=== PATIENT | female | born 1995 | race Caucasian/White ===

== ENCOUNTER 2018-12-17 12:50 | Observation (INO) | payer OTHER ==
[~2018-12-17] VITALS: Ht 158 cm; Wt 79.8 kg
== END 2018-12-17 14:40 | disposition home or self-care (01) ==
LOC: 4S 12:50
PROVIDERS: ADMIT Obstetrics & Gynecology; ATTEND Obstetrics & Gynecology
DX: O36.8330 Maternal care for abnormalities of the fetal heart rate or rhythm, third trimester, not applicable or unspecified (principal); Z3A.38 38 weeks gestation of pregnancy

== ENCOUNTER 2018-12-22 10:05 | Inpatient (IN) | payer OTHER ==
[~2018-12-22] VITALS: Ht 157.5 cm; Wt 78.9 kg
[2018-12-22] MEDS ORDERED: CARBOPROST TROMETHAMINE 250 MCG/ML AMP IM PRN (10:30)
[2018-12-22] MEDS ORDERED: RINGERS SOLUTION,LACTATED 1,000 ML IV PRN (10:30)
[2018-12-22] MEDS ORDERED: METHYLERGONOVINE MALEATE 0.2 MG/ML VIAL IM PRN (10:30)
[2018-12-22] MEDS ORDERED: CITRIC ACID/SODIUM CITRATE 30 ML SOLUTION UDCUP PO PRN (10:30)
[2018-12-22] MEDS ORDERED: METOCLOPRAMIDE HCL 5 MG/ML 2 ML VIAL IVP PRN (10:30)
[2018-12-22] MEDS ORDERED: LIDOCAINE/PF 1% 30 ML VIAL INJ PRN (10:30)
[2018-12-22] MEDS ORDERED: OXYTOCIN 30 UNITS/LACT RINGERS 500 ML IV ONE (10:30)
[2018-12-22] MEDS: RINGERS SOLUTION,LACTATED 1,000 ML IV SCH ×2 (11:37→22:20)
[2018-12-22 11:59] LABS: BASOPHILS % (AUTO) 0.3 % (0.0-2.0); EOSINOPHILS % (AUTO) 0.5 % (1.0-6.0); HEMATOCRIT 32.5 % (36-46); LYMPHOCYTES # (AUTO) 1.4 K/uL (1.0-4.8); LYMPHOCYTES % (AUTO) 11.6 % (22.0-44.0); MEAN CORPUSCULAR HEMOGLOBIN 28.6 pg (26.0-34.0); MEAN CORPUSCULAR HGB CONC 33.7 G/dL (31.0-37.0); MEAN CORPUSCULAR VOLUME 85 fL (80-100); MONOCYTES # (AUTO) 0.7 K/uL (0.1-1.0); MONOCYTES % (AUTO) 5.8 % (2.0-9.0); NEUTROPHILS # (AUTO) 10.2 K/uL (1.8-7.7); NEUTROPHILS % (AUTO) 81.8 % (40.0-70.0); PLATELET COUNT (AUTO) 256 K/uL (150-450); RED BLOOD CELL COUNT(AUTO) 3.83 MIL/uL (4.00-5.20); RED CELL DISTRIBUTION WIDTH 13.6 % (11.5-14.5)
[2018-12-22] MEDS ORDERED: PREN-217 PO (12:49)
[2018-12-22] MEDS ORDERED: INFLUENZA VIRUS VACCINE QVS 2019-20 (3YR+)/PF 60 MCG/0.5 ML SYRINGE IM ONE (13:00)
[2018-12-22] MEDS: MISOPROSTOL 25 MCG TABLET VG SCH ×3 (13:41→22:27)
[2018-12-22 14:30] VITALS: BP 124/82
[2018-12-22] MEDS ORDERED: OXYGEN THERAPY IH SCH (20:00)
[2018-12-23] MEDS ORDERED: AMPICILLIN SODIUM 2 GM/NS 100 ML IV ONE
[2018-12-23] MEDS: MISOPROSTOL 25 MCG TABLET VG SCH ×3 (02:39→10:38)
[2018-12-23] MEDS: AMPICILLIN SODIUM 1 GM/NS 50 ML IV SCH ×5 (03:50→19:58)
[2018-12-23] MEDS: RINGERS SOLUTION,LACTATED 1,000 ML IV SCH ×3 (07:57→22:44)
[2018-12-23] MEDS ORDERED: DINOPROSTONE 10 MG VAGINAL SUPPOSITORY VG ONE (15:30)
[2018-12-23] MEDS ORDERED: INFLUENZA VIRUS VACCINE QVS 2019-20 (3YR+)/PF 60 MCG/0.5 ML SYRINGE IM ONE (20:30)
[2018-12-23] MEDS ORDERED: OXYTOCIN 30 UNITS/LACT RINGERS 500 ML IV PRN (21:09)
[2018-12-23] MEDS ORDERED: MISOPROSTOL 25 MCG TABLET VG ONE (21:15)
[2018-12-24] MEDS: AMPICILLIN SODIUM 1 GM/NS 50 ML IV SCH ×3 (00:08→19:47)
[2018-12-24] MEDS ORDERED: -PHARMACY NOTE- MISC ONE (03:30)
[2018-12-24] MEDS ORDERED: MISOPROSTOL 25 MCG TABLET VG ONE (08:15)
[2018-12-24] MEDS: RINGERS SOLUTION,LACTATED 1,000 ML IV SCH ×2 (08:20→16:36)
[2018-12-24] MEDS ORDERED: OXYTOCIN 30 UNITS/LACT RINGERS 500 ML IV PRN (19:15)
[2018-12-24] MEDS ORDERED: MISOPROSTOL 50 MCG TABLET PO ONE (19:15)
[2018-12-25] MEDS: AMPICILLIN SODIUM 1 GM/NS 50 ML IV SCH ×4 (00:16→12:35)
[2018-12-25] MEDS ORDERED: MISOPROSTOL 50 MCG TABLET PO SCH (00:45)
[2018-12-25] MEDS: RINGERS SOLUTION,LACTATED 1,000 ML IV SCH ×3 (01:43→15:06)
[2018-12-25] MEDS ORDERED: OXYTOCIN 30 UNITS/LACT RINGERS 500 ML IV PRN (03:00)
[2018-12-25] MEDS ORDERED: BUPIVACAINE HCL/PF 0.25% 10 ML VIAL ONE (06:59)
[2018-12-25] MEDS ORDERED: ROPIVACAINE HCL/PF 0.2% 100 ML ED ONE ×2 (06:59→13:01)
[2018-12-25] MEDS ORDERED: ONDANSETRON HCL 4 MG/2 ML VIAL IVP PRN (13:15)
[2018-12-25] MEDS ORDERED: ROPIVACAINE HCL/PF 0.2% 100 ML ED PRN (13:15)
[2018-12-25] MEDS ORDERED: DiphenhydrAMINE HCL 50 MG/ML VIAL IVP PRN (13:15)
[2018-12-25] MEDS ORDERED: ACETAMINOPHEN 325 MG TABLET PO ONE (14:45)
[2018-12-25] MEDS ORDERED: WATER IV SCH (15:00)
[2018-12-25] MEDS ORDERED: GENTAMICIN SULFATE IV SCH (15:00)
[2018-12-25] MEDS ORDERED: DEXTROSE 5% IV SCH (15:00)
[2018-12-25] MEDS ORDERED: MINERAL OIL 30 ML UDCUP ONE (15:10)
[2018-12-25] MEDS ORDERED: MINERAL OIL 30 ML UDCUP VG ONE (15:30)
[2018-12-25] MEDS ORDERED: AMPICILLIN SODIUM 2 GM/NS 100 ML IV SCH (16:00)
[2018-12-25] MEDS ORDERED: OXYTOCIN 30 UNITS/LACT RINGERS 500 ML IV ONE (16:11)
[2018-12-25] MEDS ORDERED: BENZOCAINE 20%/MENTHOL 56 GM SPRAY CANISTER TP PRN (16:15)
[2018-12-25] MEDS ORDERED: LANOLIN 7 GM OINTMENT TP PRN (16:15)
[2018-12-25] MEDS ORDERED: LIDOCAINE/PF 1% 30 ML VIAL INJ PRN (16:15)
[2018-12-25] MEDS ORDERED: GLYCERIN/WITCH HAZEL LEAF 40 PADS JAR TP PRN (16:15)
[2018-12-25] MEDS ORDERED: IBUPROFEN 800 MG TABLET PO PRN (16:15)
[2018-12-25] MEDS ORDERED: OxyCODONE HCL/ACETAMINOPHEN 5-325 MG TABLET PO PRN ×2 (16:15)
[2018-12-25] MEDS: MAGNESIUM HYDROXIDE SUSPENSION 30 ML UDCUP PO PRN (22:07)
[2018-12-26 07:42] LABS: BASOPHILS % (AUTO) 0.3 % (0.0-2.0); EOSINOPHILS % (AUTO) 0.3 % (1.0-6.0); HEMATOCRIT 30.8 % (36-46); HEMOGLOBIN 10.4 g/dL (12.0-16.0); LYMPHOCYTES # (AUTO) 2.4 K/uL (1.0-4.8); MEAN CORPUSCULAR HEMOGLOBIN 28.5 pg (26.0-34.0); MEAN CORPUSCULAR HGB CONC 33.7 G/dL (31.0-37.0); MEAN CORPUSCULAR VOLUME 85 fL (80-100); MONOCYTES # (AUTO) 0.8 K/uL (0.1-1.0); MONOCYTES % (AUTO) 5.9 % (2.0-9.0); NEUTROPHILS # (AUTO) 10.9 K/uL (1.8-7.7); NEUTROPHILS % (AUTO) 76.5 % (40.0-70.0); PLATELET COUNT (AUTO)-OB 233 K/uL (150-450); RED BLOOD CELL COUNT(AUTO) 3.64 MIL/uL (4.00-5.20); RED CELL DISTRIBUTION WIDTH 14.2 % (11.5-14.5)
[2018-12-26] MEDS: MAGNESIUM HYDROXIDE SUSPENSION 30 ML UDCUP PO PRN (10:26)
[2018-12-26] MEDS ORDERED: ACET-2247 PO (13:33)
[2018-12-26] MEDS ORDERED: IBUP-2070 PO (13:35)
== END 2018-12-26 16:05 | disposition home or self-care (01) | DRG 807 ==
LOC: INTOOBSV 10:05 → 4S 10:05 → OBSVTOIN 10:05
PROVIDERS: ADMIT Obstetrics & Gynecology; ATTEND Obstetrics & Gynecology
PROC: 10E0XZZ Delivery of Products of Conception, External Approach (ICD-10-PCS; principal; 2018-12-25)
PROC: 0KQM0ZZ Repair Perineum Muscle, Open Approach (ICD-10-PCS; 2018-12-25)
PROC: 3E0R3BZ Introduction of Anesthetic Agent into Spinal Canal, Percutaneous Approach (ICD-10-PCS; 2018-12-25)
PROC: 00HU33Z Insertion of Infusion Device into Spinal Canal, Percutaneous Approach (ICD-10-PCS; 2018-12-25)
DX: O99.824 Streptococcus B carrier state complicating childbirth (principal); Z37.0 Single live birth; O70.1 Second degree perineal laceration during delivery; Z3A.39 39 weeks gestation of pregnancy
CPT/HCPCS: 76815; 86850; 86900; 86901; 90686; J0290; J1580; J2210; J2590; J2795; J3490; J7060; J7120